=== PATIENT | female | born 1990 | race American Indian/Alaskan Native ===

== ENCOUNTER 2017-10-11 20:39 | Emergency (ER) | payer OTHER ==
[2017-10-12] MEDS ORDERED: MOTRIN PO ONE (01:42)
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
[2017-10-12 02:23] VITALS: BP 110/65
== END 2017-10-12 02:26 | disposition home or self-care (01) ==
LOC: ED 20:39
DX: R51 Headache (principal); M62.838 Other muscle spasm; V89.2XXA Person injured in unspecified motor-vehicle accident, traffic, initial encounter; Y93.89 Activity, other specified; Y99.8 Other external cause status; Y92.410 Unspecified street and highway as the place of occurrence of the external cause
CPT/HCPCS: 99282

== ENCOUNTER 2019-01-06 12:29 | Emergency (ER) | payer MEDICAID, OTHER ==
[2019-01-06 13:12] VITALS: BP 117/70
[2019-01-06] MEDS ORDERED: IBUPROFEN PO ONE ×2 (13:13→13:16)
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
--- NOTE | 2019-01-06 15:09 | XRay Report ---
CERVICAL SPINE, 3 views: History: Neck pain. Findings: The vertebral bodies, disk spaces, posterior elements and prevertebral soft tissues are unremarkable. The dens is intact. No acute fracture or malalignment is identified. Impression: 1. No evidence for acute injury to the cervical spine.
--- NOTE | 2019-01-06 15:09 | XRay Report ---
LUMBOSACRAL SPINE, 3 VIEWS: History: Back pain Findings: The vertebral bodies, disk spaces and posterior elements are intact. No compression deformity or malalignment. The SI joints are symmetric and unremarkable. Impression: 1. No evidence for acute injury to the lumbar spine.
== END 2019-01-06 15:06 | disposition home or self-care (01) ==
LOC: ED 12:29
DX: S16.1XXA Strain of muscle, fascia and tendon at neck level, initial encounter (principal); Z79.899 Other long term (current) drug therapy; V89.2XXA Person injured in unspecified motor-vehicle accident, traffic, initial encounter; Y93.89 Activity, other specified; Y92.488 Other paved roadways as the place of occurrence of the external cause; Y99.8 Other external cause status
CPT/HCPCS: 72040; 72100; 99283